=== PATIENT | female | born 1980 | race Hispanic/Latino ===

== ENCOUNTER 2017-10-14 20:14 | Emergency (ER) | payer OTHER, SELFPAY ==
--- NOTE | 2017-10-14 21:36 | RAD ---
TWO VIEWS OF THE LEFT ELBOW 10/14/17 COMPARISON: None. HISTORY: Tripped and fell at work with left elbow pain after trauma. FINDINGS: Two views of the left elbow shows no evidence of acute fracture or dislocation. No elbow effusion is seen. No degenerative changes are present. IMPRESSION: Unremarkable exam. POS: [facility]
--- NOTE | 2017-10-17 07:53 | RAD ---
FOUR VIEWS OF THE LEFT KNEE 10/14/17 COMPARISON: None. HISTORY: Tripped and fell at work with left knee pain. FINDINGS: Four views of the left knee shows no evidence of acute fracture or dislocation. No knee effusion is s een. No degenerative changes are seen . IMPRESSION: Unremarkable exam. POS: [facility]
--- NOTE | 2017-10-17 07:53 | RAD ---
TWO VIEWS OF THE LEFT HUMERUS: 10/14/17 COMPARISON: None. HISTORY: Tripped and fell at work with left arm pain. FINDINGS: Three views of the left humerus shows no evidence of acute fracture or dislocation. No degenerative c hanges are seen. IMPRESSION: Unremarkable exam. POS: [facility]
== END 2017-10-14 21:54 | disposition home or self-care (01) ==
LOC: ERS 20:14
DX: S50.02XA Contusion of left elbow, initial encounter (principal); S80.02XA Contusion of left knee, initial encounter; S40.012A Contusion of left shoulder, initial encounter; E11.9 Type 2 diabetes mellitus without complications; W01.0XXA Fall on same level from slipping, tripping and stumbling without subsequent striking against object, initial encounter; Y99.0 Civilian activity done for income or pay

== ENCOUNTER 2018-04-13 21:58 | Emergency (ER) | payer OTHER, SELFPAY ==
--- NOTE | 2018-04-13 22:36 | RAD ---
PA AND LATERAL VIEWS OF THE CHEST: 04/13/18 HISTORY: Chest pain. FINDINGS: Comparison is made with exam of 05/26/17. The cardiomediastinum is normal. The lungs are expanded and clear. The bony thorax is normal. IMPRESSION: Normal exam. POS: [facility]
[2018-04-13 22:55] LABS: Hemoglobin 10.7 g/dL (12.0-16.0); Mean Corpuscular HGB CONC 33.1 g/dL (32.0-36.0); Mean Corpuscular Hemoglobin 25.9 pg (27.0-31.0); Mean Corpuscular Volume 78.2 fL (78.0-98.0); Mean Platelet Volume 7.6 fL (7.4-10.4); Platelet Count 246 thou/uL (130-400); RBC Distribution Width 13.2 % (11.5-14.5); Red Blood Cell (RBC) Count 4.13 mill/uL (4.20-5.40); White Blood Cell (WBC) Count 8.7 thou/uL (4.8-10.8)
[2018-04-13 23:14] LABS: ALT (SGPT) 16 U/L (8-55); AST (SGOT) 17 U/L (5-34); Alkaline Phosphatase 53 U/L (40-150); Anion Gap 13 mmol/L (10-20); BUN (Urea Nitrogen) 15 mg/dL (7.0-18.7); Bilirubin, Total 0.4 mg/dL (0.2-1.2); CK (CPK) 127 U/L (29-168); Calc. Creatinine Clearance 0 mL/min (70-130); Calcium 8.6 mg/dL (7.8-10.44); Carbon Dioxide 22 mmol/L (22-29); Chloride 109 mmol/L (98-107); Estimated GFR-MDRD 89; Globulin 3.1 g/dL (2.4-3.5); Glucose 91 mg/dL (70-105); Lipase 38 U/L (8-78); Potassium 3.5 mmol/L (3.5-5.1); Protein, Total 7.1 g/dL (6.0-8.3); Sodium 140 mmol/L (136-145)
[2018-04-13 23:15] LABS: CKMB 0.8 ng/mL (0-6.6); Troponin I Less than 0.010 ng/mL (< 0.028)
[2018-04-13 23:16] LABS: Band 1 % (5-11); Lymphocytes 39 % (21-51); MDiff Complete? YES; Monocytes 9 % (0-10); Neutrophil 45 % (42-75); Reactive Lymphocytes 6 % (0-10)
[2018-04-14 00:21] LABS: BHCG - Serum Negative (NEGATIVE); Pregs Control Background? CLEAR/WHITE (CLR/WHITE); Pregs Control Bar Appear? YES (CONTROL BAR)
[2018-04-14] MEDS ORDERED: Ketorolac Tromethamine 30 MG/ML VIAL ONE (00:57)
== END 2018-04-14 01:28 | disposition home or self-care (01) ==
LOC: ERS 21:58
DX: R07.89 Other chest pain (principal); E11.9 Type 2 diabetes mellitus without complications
CPT/HCPCS: 36415; 71046; 80053; 82550; 82553; 83690; 84484; 84703; 85025; 93005; 96372; J1885

== ENCOUNTER 2020-03-12 13:34 | Emergency (ER) | payer OTHER, SELFPAY ==
[2020-03-13 14:27] LABS: SARS-CoV-2 MS2 Positive; SARS-CoV-2 N Gene Positive; SARS-CoV-2 S Gene Positive; SARS-CoV-2 orf1ab Positive
== END 2020-03-12 14:43 | disposition home or self-care (01) ==
LOC: ERS 13:34
DX: U07.1 COVID-19 (principal); E11.9 Type 2 diabetes mellitus without complications
CPT/HCPCS: 87635; 99283; U0003

== ENCOUNTER 2020-07-13 11:18 | Emergency (ER) | payer SELFPAY | END 2020-07-13 12:54 | disposition home or self-care (01) | LOC: ERS 11:18 | DX: H00.015 Hordeolum externum left lower eyelid (principal) | CPT/HCPCS: 99283 ==

== ENCOUNTER 2022-03-06 22:23 | Emergency (ER) | payer SELFPAY ==
[2022-03-06 23:12] LABS: Bilirubin Negative (Negative); Blood, Urine Negative (Negative); Clarity Clear (Clear); Glucose, Urine (Dipstick) Normal (Negative); Ketone, Urine Negative (Negative); Leukocyte 25 Leu/uL (Negative); Nitrite Negative (Negative); Protein, Urine (Dipstick) Negative (Neg-Trace); RBC/HPF 0-3 HPF (0-3); Specific Gravity, Urine 1.019 (1.002-1.036); Urobilinogen Normal mg/dL (Less than 2); WBC/HPF 0-3 HPF (0-3)
[2022-03-06 23:20] LABS: Bacteria/HPF 1+ HPF (None Seen); Squamous Epithelial 0-3 HPF (0-3)
[2022-03-07 02:59] LABS: Pregnancy Test - Urine (BHCG) Negative (Negative); Pregu Control Background? CLEAR/WHITE (CLR/WHITE); Pregu Control Bar Appear? YES (CONTROL BAR); Specific Gravity 1.019 (1.002-1.036)
[2022-03-07] MEDS ORDERED: Ketorolac Tromethamine 30 MG/ML VIAL ONE (03:19)
== END 2022-03-07 03:50 | disposition home or self-care (01) ==
LOC: ERS 22:23
DX: R10.9 Unspecified abdominal pain (principal)
CPT/HCPCS: 81003; 81015; 81025; 96372; 99284; J1885

== ENCOUNTER 2022-05-16 13:36 | Emergency (ER) | payer SELFPAY ==
[2022-05-16] MEDS ORDERED: Ondansetron PF 4 MG/2 ML Vial ONE (13:59)
[2022-05-16] MEDS ORDERED: Ketorolac Tromethamine 30 MG/ML VIAL ONE (13:59)
[2022-05-16 14:17] LABS: #Lymphocytes 1.2 thou/uL (1.20-3.40); #Monocytes 0.7 thou/uL (0.11-0.59); #Neutrophils 11.4 thou/uL (1.40-6.50); %Basophils 0.1 % (0.0-1.0); %Lymphocytes 9.2 % (21.0-51.0); %Monocytes 5.5 % (0.0-10.0); %Neutrophils 85.1 % (42.0-75.0); Hemoglobin 9.4 g/dL (12.0-16.0); Mean Corpuscular HGB CONC 29.9 g/dL (32.0-36.0); Mean Corpuscular Hemoglobin 18.9 pg (27.0-31.0); Mean Corpuscular Volume 63.1 fL (78.0-98.0); Mean Platelet Volume 11.3 fL (7.4-10.4); Platelet Count 361 thou/uL (130-400); RBC Distribution Width 16.8 % (11.5-14.5); White Blood Cell (WBC) Count 13.4 thou/uL (4.8-10.8)
[2022-05-16 14:39] LABS: ALT (SGPT) 15 U/L (8-55); AST (SGOT) 14 U/L (5-34); Albumin 4.5 g/dL (3.5-5.0); Alkaline Phosphatase 72 U/L (40-110); Anion Gap 15 mmol/L (10-20); BUN (Urea Nitrogen) 14 mg/dL (7.0-18.7); Bilirubin, Total 1.5 mg/dL (0.2-1.2); Calc. Creatinine Clearance 0 mL/min (70-130); Calcium 9.6 mg/dL (7.8-10.44); Carbon Dioxide 19 mmol/L (22-29); Chloride 104 mmol/L (98-107); Estimated GFR 96; Globulin 4.2 g/dL (2.4-3.5); Glucose 128 mg/dL (70-105); Lipase 22 U/L (8-78); Potassium 3.6 mmol/L (3.5-5.1); Protein, Total 8.7 g/dL (6.0-8.3); Sodium 134 mmol/L (136-145)
[2022-05-16 14:49] LABS: Anisocytosis SLIGHT = 6-15 cells (100X) (0-5/hpf); Hypochromia MODERATE=16-30 cells (100X) (0-5/hpf); Large Platelets SLIGHT; MDiff Complete? YES; Microcytosis SLIGHT = 6-15 cells (100X) (0-5/hpf); Ovalocytes SLIGHT = 2-5 cells (100X) (0-1/hpf); Platelet Morphology Comment Appears Adequate; Polychromasia SLIGHT = 2-3 cells (100X) (0-2/hpf); Reflex for Review?? YES; Target Cells SLIGHT = 2-5 cells (100X) (0-1/hpf)
[2022-05-16 15:53] LABS: Bilirubin Negative (Negative); Blood, Urine Negative (Negative); Clarity Clear (Clear); Glucose, Urine (Dipstick) Normal (Negative); Ketone, Urine Negative (Negative); Leukocyte Negative Leu/uL (Negative); Nitrite Negative (Negative); Protein, Urine (Dipstick) Negative (Neg-Trace); Urobilinogen Normal mg/dL (Less than 2); pH, Urine 5.5 (5.0-9.0)
[2022-05-16] MEDS ORDERED: Dicyclomine 20 MG/2 ML VIAL ONE (16:17)
== END 2022-05-16 17:19 | disposition home or self-care (01) ==
LOC: ERS 13:36
DX: E86.0 Dehydration (principal)
CPT/HCPCS: 74176; 80053; 81003; 83690; 85025; 85060; 96361; 96372; 96374; 96375; J1885; J2405